=== PATIENT | male | born 1940 | race Two or more races ===

== ENCOUNTER 2016-06-11 21:06 | Inpatient (IN) | payer MEDICARE, MEDICAID ==
[~2016-06-11] VITALS: Ht 165.1 cm; Wt 74.4 kg
[2016-06-11 23:15] VITALS: BP 150/72
[2016-06-12] MEDS ORDERED: CATAPRES-TTS 11 EACH TDERMAL (01:08)
[2016-06-12] MEDS ORDERED: ATENOLOL50 MG ORAL (01:08)
[2016-06-12] MEDS ORDERED: COZAAR100 MG ORAL (01:08)
[2016-06-12] MEDS ORDERED: VITAMIN D250000 UNI1 ORAL (01:08)
[2016-06-12] MEDS ORDERED: COLCHICINE0.6 M1 PO (01:38)
[2016-06-12] MEDS ORDERED: ZOCOR40 MG ORAL (01:38)
[2016-06-12] MEDS ORDERED: PLAVIX75 MG ORAL (01:38)
[2016-06-12 04:00] VITALS: BP 111/58
[2016-06-12 04:46] LABS: EOSINOPHILS % (AUTO) 1.8 % (0.0-3.0); LYMPHOCYTES % (AUTO) 44.4 % (20.0-45.0); MEAN CORPUSCULAR HEMOGLOBIN 28.6 PG (27.0-31.0); MEAN CORPUSCULAR HGB CONC 33.4 G/DL (32.0-36.0); MEAN CORPUSCULAR VOLUME 86 FL (80-99); MEAN PLATELET VOLUME 8.2 FL (6.5-10.1); MONOCYTES % (AUTO) 7.7 % (1.0-10.0); NEUTROPHILS % (AUTO) 44.1 % (45.0-75.0); PLATELET COUNT 192 K/UL (150-450); RED BLOOD COUNT 4.82 M/UL (4.70-6.10); RED CELL DISTRIBUTION WIDTH 12.5 % (11.6-14.8)
[2016-06-12 05:12] LABS: PSA TOTAL 3.1 ng/mL (< 4.5)
[2016-06-12 05:23] LABS: ANION GAP 17 (5-15); CALCIUM 9.4 mg/dL (8.6-10.2); CARBON DIOXIDE 25 mEQ/L (20-30); CHLORIDE 96 mEQ/L (98-107); CREATININE 1.7 mg/dL (0.7-1.2); HEMOLYSIS 6; MAGNESIUM 2.3 mg/dL (1.7-2.5); PHOSPHORUS 4.7 mg/dL (2.5-4.8); POTASSIUM 4.6 mEQ/L (3.4-4.9); SODIUM 138 mEQ/L (135-145)
[2016-06-12 05:31] LABS: TROPONIN I < 0.30 ng/mL (<=0.30)
[2016-06-12 08:00] VITALS: BP 118/54
[2016-06-12] MEDS: Heparin 5000 units/ml inj SUBQ SCH ×2 (09:00→22:01)
[2016-06-12 09:37] LABS: THYROID STIMULATING HORMONE 1.25 uIU/mL (0.300-4.500)
[2016-06-12 12:00] VITALS: BP 139/76
[2016-06-12 16:00] VITALS: BP 131/59
--- NOTE | 2016-06-12 16:16 | History & Physical ---
History and Physical History & Physicial Dictated for Int Med-Dr Soliz no [id number]. HOWARD BLANTON Jun 12, 2016 16:16
[2016-06-12 18:39] LABS: TROPONIN I < 0.30 ng/mL (<=0.30)
[2016-06-12 20:00] VITALS: BP_SYST 128; BP_SYST 133; BP_DIAS 64; BP_DIAS 73
[2016-06-13] VITALS: BP 122/65
[2016-06-13 04:00] VITALS: BP 123/56
--- NOTE | 2016-06-13 05:37 | History and Physical Report ---
DATE OF ADMISSION: 06/11/2016 CHIEF COMPLAINT: The patient is a 76-year-old, male, who presents with a chief complaint of slurred speech and dizziness. HISTORY OF PRESENT ILLNESS: The patient states he started a clonidine patch on 06/06/2016. The patient states that on 06/11/2016, the patient began to experience dizziness. According to the family who is present at bedside, the patient began to have slurred speech. The patient was also confused. The patient initially presented to [facility] emergency room. An initial CAT scan revealed no acute disease. The patient was transferred to [facility] for insurance purposes. The patient presents today with a chief complaint of near syncopal episode and dysarthria. PAST MEDICAL HISTORY: Significant for, 1. Hypertension. 2. Coronary artery disease, status post myocardial infarction 15 years ago with percutaneous transluminal coronary angioplasty performed at that time. PAST SURGICAL HISTORY: Significant for percutaneous transluminal coronary angioplasty in 2002. CURRENT MEDICATIONS: 1. Clonidine patch 0.1 mg applied weekly. 2. Atenolol 50 mg one tablet p.o. twice daily. 3. Zocor 40 mg one tablet p.o. daily. 4. Plavix 75 mg one tablet p.o. daily. 5. Colchicine 0.6 mg one tab p.o. daily. 6. Vitamin D 50,000 units one p.o. every week. 7. Cozaar 100 mg one tablet p.o. daily. ALLERGIES: Penicillin. SOCIAL HISTORY: The patient is and his is at the bedside. The patient is retired. The patient denies tobacco or alcohol use. REVIEW OF SYSTEMS: Constitutional: The patient denies weight loss or weight gain. The patient denies fevers or chills. HEENT: The patient denies ear or throat pain. Cardiovascular: The patient denies palpitations or chest pain. Chest: The patient denies wheeze or shortness of breath. Abdomen: The patient denies nausea, vomiting, diarrhea, or constipation. Genitourinary: The patient denies dysuria or increased frequency of urination. Neuromuscular: The patient complains of near syncopal episode as above. The patient complains of confusion. The patient denies seizures or generalized weakness. PHYSICAL EXAMINATION: VITAL SIGNS: Temperature 97.2 degrees, respirations 18, pulse 43 to 60, blood pressure 111 to 139/54 to 76. GENERAL: The patient is well developed and well nourished male, in no apparent distress. HEENT: Eyes, pupils are equal and responsive to light and accommodation. Extraocular movements are intact. NECK: Supple without lymphadenopathy. CHEST: Lungs are clear to auscultation bilaterally without wheezes or rales. CARDIOVASCULAR: Regular rhythm and rate. S1 and S2 normal without murmurs, rubs, or gallops. ABDOMEN: Soft, nontender, and nondistended. Positive bowel sounds. No evidence of hepatosplenomegaly. Currently, no rebound or guarding noted. EXTREMITIES: Negative for clubbing, cyanosis, or edema. RECTAL/GENITAL: Refused. NEUROLOGIC: Cranial nerves II through XII are grossly intact without focal deficits. Motor strength is 5/5 bilaterally. Deep tendon reflexes are 2+ plantar. LABORATORY STUDIES: WBC 7.2, hemoglobin 13.8, hematocrit 41.2, and platelets 192,000. Sodium 138, potassium 4.6, chloride 96, CO2 17, BUN elevated at 47, creatinine 1.7, and glucose 111. A CT scan of the brain at [facility] showed no acute intracranial hemorrhage with an old lacunar infarct at the left basal ganglia. Otherwise, no acute disease. ASSESSMENT: This is a 76-year-old, male. 1. Slurred speech. 2. Confusion. 3. Near syncopal episode. 4. Bradycardia. 5. Renal failure. 6. Hypertension. 7. Coronary artery disease. 8. Hypercholesterolemia. 9. Gout. TREATMENT: 1. Slurred speech, flaccid dysarthria. An MRI of the brain is pending. An initial CT scan of the brain was within normal limits. The patient's slurred speech and dysarthria may be secondary to hypotension and bradycardia. A Cardiology consultation was obtained with Dr. Chinmay Iniguez. A Neurology consultation was obtained with Dr. Kirkpatrick. 2. Syncopal episode. 3. Slurred speech and dysarthria as above. 4. Bradycardia. A Cardiology consultation was obtained with Dr. Chinmay Iniguez. This may be secondary to metoprolol or clonidine as above. 5. Renal failure. A Nephrology consultation was obtained with Dr. Mello. This may be secondary to dehydration. 6. Hypertension. Discontinue all antihypertensive medications as above. The patient has been started on Norvasc in the meantime. 7. History of coronary artery disease. Serial troponin levels are pending. A Cardiology consultation was obtained with Dr. Noble Villa. 8. Hypercholesterolemia. Continue Zocor as above. 9. Gout. Colchicine has been suspended at this point. Jamal Encarnacion M.D. DR: AARON JOB#: [id number] CC:
[2016-06-13 07:45] LABS: BASOPHILS % (AUTO) 1.1 % (0.0-2.0); EOSINOPHILS % (AUTO) 2.6 % (0.0-3.0); LYMPHOCYTES % (AUTO) 44.4 % (20.0-45.0); MEAN CORPUSCULAR HEMOGLOBIN 28.3 PG (27.0-31.0); MEAN CORPUSCULAR HGB CONC 32.3 G/DL (32.0-36.0); MEAN CORPUSCULAR VOLUME 88 FL (80-99); MEAN PLATELET VOLUME 7.9 FL (6.5-10.1); MONOCYTES % (AUTO) 7.2 % (1.0-10.0); NEUTROPHILS % (AUTO) 44.7 % (45.0-75.0); PLATELET COUNT 175 K/UL (150-450); RED BLOOD COUNT 4.57 M/UL (4.70-6.10); RED CELL DISTRIBUTION WIDTH 12.9 % (11.6-14.8); WHITE BLOOD COUNT 5.4 K/UL (4.8-10.8)
[2016-06-13 08:01] VITALS: BP 115/50
[2016-06-13 08:12] LABS: TROPONIN I < 0.30 ng/mL (<=0.30)
[2016-06-13] MEDS: Heparin 5000 units/ml inj SUBQ SCH ×2 (08:25→21:22)
[2016-06-13 08:31] LABS: ALANINE AMINOTRANSFERASE 36 U/L (3-41); ALBUMIN/GLOBULIN RATIO 1.6 (1.0-2.7); ANION GAP 15 (5-15); ASPARTATE AMINO TRANSFERASE 29 U/L (5-40); CALCIUM 9.3 mg/dL (8.6-10.2); CARBON DIOXIDE 25 mEQ/L (20-30); CHLORIDE 103 mEQ/L (98-107); CREATININE 1.4 mg/dL (0.7-1.2); HEMOLYSIS 8; MAGNESIUM 2.3 mg/dL (1.7-2.5); PHOSPHORUS 3.8 mg/dL (2.5-4.8); POTASSIUM 4.5 mEQ/L (3.4-4.9); SODIUM 143 mEQ/L (135-145); TOTAL PROTEIN 6.6 g/dL (6.6-8.7)
[2016-06-13 11:37] VITALS: BP 168/75
--- NOTE | 2016-06-13 12:37 | Internal Med Progress Note ---
Subjective Date of Service: Jun 13, 2016 Physician Name Howard Blanton Attending Physician Michael Soliz MD Current Medications Medications (Trade) Dose Ordered Sig/Hyacinth Route PRN Reason Start Time Stop Time Status Last Admin Dose Admin Acetaminophen 650 mg 650 mg Q6H PRN ORAL Mild Pain/Temp > 100.5 06/12/16 00:30 07/12/16 00:29 Amlodipine Besylate (Norvasc) 5 mg DAILY ORAL 06/12/16 09:00 07/12/16 08:59 06/13/16 08:23 Clopidogrel Bisulfate (Plavix) 75 mg DAILY ORAL 06/12/16 09:00 07/12/16 08:59 06/13/16 08:22 Colchicine (Colchicine) 0.6 mg DAILY PRN ORAL For Pain 06/12/16 00:30 07/12/16 00:29 Dextrose (Dextrose 50%) STAT PRN IV Hypoglycemia 06/12/16 00:30 07/12/16 00:29 Heparin Sodium (Porcine) (Heparin 5000 units/ml) 5,000 units Q12HR SUBQ 06/12/16 09:00 07/12/16 08:59 06/13/16 08:25 Sodium Chloride (Sodium Chloride 1000ml bag) 1,000 ml @ 75 mls/hr [id number] IV 06/12/16 17:00 07/12/16 16:59 06/13/16 07:04 Allergies: Coded Allergies: PENICILLIN G (Verified Allergy, Mild, 02/15/11) ROS Limited/Unobtainable: No Constitutional: Reports: no symptoms HEENT: Reports: no symptoms Cardiovascular: Reports: no symptoms Respiratory: Reports: no symptoms Gastrointestinal/Abdominal: Reports: no symptoms Genitourinary: Reports: no symptoms Neurologic/Psychiatric: Reports: no symptoms Subjective 76 YO M admitted with slurred speech. Cover for Int Nolan-Dr Soliz. Await MRI brain and carotid duplex doppler. Bradycardia Objective Last Vital Signs Date Time Temp Pulse Resp B/P Pulse Ox O2 Delivery O2 Flow Rate FiO2 06/13/16 11:37 97.1 62 20 168/75 100 Room Air General Appearance: WD/WN, no apparent distress EENT: PERRL/EOMI, normal ENT inspection, other - slurred speech Neck: non-tender, normal alignment, supple, normal inspection Cardiovascular: normal peripheral pulses, normal rate, regular rhythm, no gallop/murmur, no JVD Respiratory/Chest: chest wall non-tender, lungs clear, normal breath sounds, no respiratory distress, no accessory muscle use Abdomen: normal bowel sounds, non tender, soft, no organomegaly, no mass Extremities: normal range of motion Neurologic: no motor/sensory deficits, other - slurrred speech Skin: normal pigmentation, warm/dry Laboratory Tests Test 06/12/16 17:30 06/13/16 06:10 Troponin I < 0.30 ng/mL (<=0.30) < 0.30 ng/mL (<=0.30) White Blood Count 5.4 K/UL (4.8-10.8) Red Blood Count 4.57 M/UL (4.70-6.10) L Hemoglobin 12.9 G/DL (14.2-18.0) L Hematocrit 40.0 % (42.0-52.0) L Mean Corpuscular Volume 88 FL (80-99) Mean Corpuscular Hemoglobin 28.3 PG (27.0-31.0) Mean Corpuscular Hemoglobin Concent 32.3 G/DL (32.0-36.0) Red Cell Distribution Width 12.9 % (11.6-14.8) Platelet Count 175 K/UL (150-450) Mean Platelet Volume 7.9 FL (6.5-10.1) Neutrophils (%) (Auto) 44.7 % (45.0-75.0) L Lymphocytes (%) (Auto) 44.4 % (20.0-45.0) Monocytes (%) (Auto) 7.2 % (1.0-10.0) Eosinophils (%) (Auto) 2.6 % (0.0-3.0) Basophils (%) (Auto) 1.1 % (0.0-2.0) Sodium Level 143 mEQ/L (135-145) Potassium Level 4.5 mEQ/L (3.4-4.9) Chloride Level 103 mEQ/L (98-107) Carbon Dioxide Level 25 mEQ/L (20-30) Anion Gap 15 (5-15) Blood Urea Nitrogen 34 mg/dL (7-23) H Creatinine 1.4 mg/dL (0.7-1.2) H Estimat Glomerular Filtration Rate mL/min (>60) Glucose Level 97 mg/dL (74-106) Calcium Level 9.3 mg/dL (8.6-10.2) Phosphorus Level 3.8 mg/dL (2.5-4.8) Magnesium Level 2.3 mg/dL (1.7-2.5) Total Bilirubin 0.5 mg/dL (0.0-1.2) Aspartate Amino Transf (AST/SGOT) 29 U/L (5-40) Alanine Aminotransferase (ALT/SGPT) 36 U/L (3-41) Alkaline Phosphatase 65 U/L (40-129) Total Protein 6.6 g/dL (6.6-8.7) Albumin 4.1 g/dL (3.5-5.2) Globulin 2.5 g/dL Albumin/Globulin Ratio 1.6 (1.0-2.7) Intake and Output 06/12/16 06/13/16 19:00 07:00 Intake Total 150 ml 825 ml Output Total 450 ml 350 ml Balance -300 ml 475 ml IV Total 150 ml 825 ml Output Urine Total 450 ml 350 ml Assessment/Plan Problem List: (1) Coronary artery disease Assessment & Plan: Await cardiology consult. Troponin neg (2) Hypercholesteremia (3) Gout (4) Confusion (5) Bradycardia Assessment & Plan: Await cardiology consult. (6) Renal failure (7) Syncope (8) HTN (hypertension) Assessment & Plan: Cont norvasc. (9) Dysarthria Assessment & Plan: ? CVA? Await neuro consult. Await MRI brain and carotid duplex Status: not improved HOWARD BLANTON Jun 13, 2016 12:36
--- NOTE | 2016-06-13 14:43 | Consultation ---
History of Present Illness General Date patient seen: Jun 13, 2016 Chief Complaint: ALOC Referring physician: Dr. Encarnacion Reason for Consultation: Inpatient managemtn Present Illness HPI 76 year old male with hx of DM, HTN, CVA 15 years ago, whose bp meds were changed by primary physician. He was sitting at the dinner table when he was noticed to have slow and slurred speech. He thought that his bp was too low, but there is no documentation of low bp. The paramedics sheet are not available. Pt had an EKG in [place] which showed bifascicular block. After initial symptomatic treatment, he was transferred to [facility] telemetry for further evaluation. Currently he is asymptomatic. Allergies: Coded Allergies: PENICILLIN G (Verified Allergy, Mild, 02/15/11) Medication History Scheduled Clopidogrel Bisulfate* (Plavix*), 75 MG ORAL DAILY, (Reported) Simvastatin (Zocor), 40 MG ORAL BEDTIME, (Reported) Miscellaneous Medications Colchicine (Colchicine), 0.6 MG PO, (Reported) Discontinued Medications Atenolol* (Tenormin*), 50 MG ORAL BID, (Reported) Discontinued Reason: MD discontinued med Wqdlzhioc-Uzj-3* (Gfajlkty-Fva-9*), 1 PATCH TDERMAL ONCE A WEEK, (Reported) Discontinued Reason: MD discontinued med Ergocalciferol (Vitamin D2)* (Vitamin D*), 50,000 UNIT ORAL ONCE A WEEK, ( Reported) Discontinued Reason: MD discontinued med Losartan Potassium (Cozaar), 100 MG ORAL DAILY, (Reported) Discontinued Reason: MD discontinued med Patient History Healthcare decision maker N Resuscitation status Full Code Advanced Directive on File No Past Medical/Surgical History Past Medical/Surgical History: (1) Diabetes mellitus (2) HTN (hypertension) (3) Gout Review of Systems Constitutional: Reports: no symptoms All Other Systems: negative except mentioned in HPI Physical Exam General Appearance: WD/WN Lines, tubes and drains: peripheral, central line HEENT: normocephalic, atraumatic Neck: non-tender, normal alignment Respiratory/Chest: chest wall non-tender, lungs clear Cardiovascular/Chest: normal peripheral pulses, normal rate Abdomen: normal bowel sounds Genitourinary/Rectal: normal genital exam Extremities: normal range of motion Neurologic: brand marketing manager II-XII grossly normal Last 24 Hour Vital Signs Date Time Temp Pulse Resp B/P Pulse Ox O2 Delivery O2 Flow Rate FiO2 06/13/16 11:37 97.1 62 20 168/75 100 Room Air 06/13/16 08:23 47 115/50 06/13/16 08:01 97.0 47 20 115/50 100 Room Air 06/13/16 08:00 51 06/13/16 04:00 97.7 51 20 123/56 95 Room Air 06/13/16 04:00 45 06/13/16 00:00 97.5 48 20 122/65 96 Room Air 06/13/16 00:00 49 06/12/16 20:00 97.7 51 20 133/64 95 06/12/16 20:00 49 06/12/16 16:00 51 06/12/16 16:00 97.7 50 20 131/59 96 Intake and Output 06/12/16 06/13/16 19:00 07:00 Intake Total 150 ml 825 ml Output Total 450 ml 350 ml Balance -300 ml 475 ml IV Total 150 ml 825 ml Output Urine Total 450 ml 350 ml Laboratory Tests Test 06/12/16 17:30 06/13/16 06:10 Troponin I < 0.30 ng/mL (<=0.30) < 0.30 ng/mL (<=0.30) White Blood Count 5.4 K/UL (4.8-10.8) Red Blood Count 4.57 M/UL (4.70-6.10) L Hemoglobin 12.9 G/DL (14.2-18.0) L Hematocrit 40.0 % (42.0-52.0) L Mean Corpuscular Volume 88 FL (80-99) Mean Corpuscular Hemoglobin 28.3 PG (27.0-31.0) Mean Corpuscular Hemoglobin Concent 32.3 G/DL (32.0-36.0) Red Cell Distribution Width 12.9 % (11.6-14.8) Platelet Count 175 K/UL (150-450) Mean Platelet Volume 7.9 FL (6.5-10.1) Neutrophils (%) (Auto) 44.7 % (45.0-75.0) L Lymphocytes (%) (Auto) 44.4 % (20.0-45.0) Monocytes (%) (Auto) 7.2 % (1.0-10.0) Eosinophils (%) (Auto) 2.6 % (0.0-3.0) Basophils (%) (Auto) 1.1 % (0.0-2.0) Sodium Level 143 mEQ/L (135-145) Potassium Level 4.5 mEQ/L (3.4-4.9) Chloride Level 103 mEQ/L (98-107) Carbon Dioxide Level 25 mEQ/L (20-30) Anion Gap 15 (5-15) Blood Urea Nitrogen 34 mg/dL (7-23) H Creatinine 1.4 mg/dL (0.7-1.2) H Estimat Glomerular Filtration Rate mL/min (>60) Glucose Level 97 mg/dL (74-106) Calcium Level 9.3 mg/dL (8.6-10.2) Phosphorus Level 3.8 mg/dL (2.5-4.8) Magnesium Level 2.3 mg/dL (1.7-2.5) Total Bilirubin 0.5 mg/dL (0.0-1.2) Aspartate Amino Transf (AST/SGOT) 29 U/L (5-40) Alanine Aminotransferase (ALT/SGPT) 36 U/L (3-41) Alkaline Phosphatase 65 U/L (40-129) Total Protein 6.6 g/dL (6.6-8.7) Albumin 4.1 g/dL (3.5-5.2) Globulin 2.5 g/dL Albumin/Globulin Ratio 1.6 (1.0-2.7) Height (Feet): 5 Height (Inches): 5.00 Weight (Pounds): 164 Medications Current Medications Medications (Trade) Dose Ordered Sig/Hyacinth Route PRN Reason Start Time Stop Time Status Last Admin Dose Admin Acetaminophen 650 mg 650 mg Q6H PRN ORAL Mild Pain/Temp > 100.5 06/12/16 00:30 07/12/16 00:29 Amlodipine Besylate (Norvasc) 5 mg DAILY ORAL 06/12/16 09:00 07/12/16 08:59 06/13/16 08:23 Clopidogrel Bisulfate (Plavix) 75 mg DAILY ORAL 06/12/16 09:00 07/12/16 08:59 06/13/16 08:22 Colchicine (Colchicine) 0.6 mg DAILY PRN ORAL For Pain 06/12/16 00:30 07/12/16 00:29 Dextrose (Dextrose 50%) STAT PRN IV Hypoglycemia 06/12/16 00:30 07/12/16 00:29 Heparin Sodium (Porcine) (Heparin 5000 units/ml) 5,000 units Q12HR SUBQ 06/12/16 09:00 07/12/16 08:59 06/13/16 08:25 Sodium Chloride (Sodium Chloride 1000ml bag) 1,000 ml @ 75 mls/hr [id number] IV 06/12/16 17:00 07/12/16 16:59 06/13/16 07:04 Assessment/Plan Problem List: (1) Syncope ICD Codes: R55 - Syncope and collapse SNOMED: 849684278 (2) Acute encephalopathy ICD Codes: G93.40 - Encephalopathy, unspecified SNOMED: 4967339 (3) HTN (hypertension) ICD Codes: I10 - Essential (primary) hypertension SNOMED: 22418802 Qualifiers: Qualified Codes: I10 - Essential (primary) hypertension (4) Renal failure ICD Codes: N19 - Unspecified kidney failure SNOMED: 44153504 (5) Confusion ICD Codes: R41.0 - Disorientation, unspecified SNOMED: 027539454 (6) Gout ICD Codes: M10.9 - Gout, unspecified SNOMED: 78320357 Qualifiers: (7) Diabetes mellitus ICD Codes: E11.9 - Type 2 diabetes mellitus without complications SNOMED: 77889195 Qualifiers: Assessment/Plan get Echo results EF 55% MRI neuro evaluaiton get baseline cxr Cardio evaluation RUTH ANDRADE Jun 13, 2016 14:43
--- NOTE | 2016-06-13 15:08 | Diagnostic Imaging Report ---
Indication: Altered mental status Technique: The head was imaged in a 1.5 Charlene magnet. Sequences obtained include sagittal and axial T1 FLAIR, axial T2 fast spin echo with fat saturation, axial T2 FLAIR, diffusion and ADC map. Gadolinium-enhanced axial and coronal T1 FLAIR obtained also. Comparison: None Findings: There is mild prominence of the sulci, ventricles, and basal cisterns consistent with atrophy. Mild, nonspecific T2 hyperintensity noted within white matter. This may be due to chronic small vessel disease. No abnormal enhancement is identified. Cystic foci demonstrated in the left caudate and coronal radiata bilaterally. There is no restricted diffusion. Funk-white differentiation is normal. There is no mass effect, midline shift, edema, or hemorrhage. There are no abnormal extra-axial or intra-axial fluid collections. The corpus callosum and sella are unremarkable. The brainstem and cerebellum are unremarkable. Bone marrow signal within the visualized osseous structures appears age appropriate and unremarkable otherwise. Impression: No acute intracranial findings. Old lacunar infarcts in the left caudate and bilateral coronal radiata. Age-related findings including atrophy and evidence of chronic small vessel disease involving white matter tracts.
--- NOTE | 2016-06-13 15:14 | Consultation ---
Consult Note Consult Note asked to evaluate for renal failure- 76 year old male with hx of DM, HTN, CVA 15 years ago, whose bp meds were changed by primary physician. He was sitting at the dinner table when he was noticed to have slow and slurred speech. He thought that his bp was too low, but there is no documentation of low bp. The paramedics sheet are not available. Pt had an EKG in [place] which showed bifascicular block. After initial symptomatic treatment, he was transferred to [facility] telemetry for further evaluation. Currently he is asymptomatic. Allergies: Coded Allergies: PENICILLIN G (Verified Allergy, Mild, 02/15/11) Patient interviewed, examined- Data reviewed . Assessment/Plan status: Renal failure, mainly pre-renal / dehydration, likely underlying CKD Presented with Cr 1.7 , now down to 1.4 no UA available yet Others: (1) h/o Coronary artery disease (2) Hypercholesteremia (3) Gout (4) Encephalopathy on ER arrival, h/o CVA ( MRI: Old lacunar infarcts in the left caudate and bilateral coronal radiata.) (5) Bradycardia, likely due to medication, rule out sick sinus (6) Syncope, likely due to (5) (7) HTN (hypertension), by history (8) Dysarthria, resolved Plan: Hydralazine for better BP control- slow Hydrate- Urine analysis and studies- continue per consultants VENESSA MORALES Jun 13, 2016 15:14
[2016-06-13] MEDS ORDERED: HydrALAZINE 25mg tab ORAL PRN (15:30)
--- NOTE | 2016-06-13 15:31 | Diagnostic Imaging Report ---
Indication: Dyspnea Comparison: None A single view chest radiograph was obtained. Findings: No definite infiltrate or pulmonary vascular congestion identified. The heart is normal. The aorta is mildly enlarged and calcified consistent with atherosclerotic vascular disease. The bones are osteopenic. Impression: No acute disease
[2016-06-13] MEDS ORDERED: HydrALAZINE 10mg Tab ORAL SCH (15:45)
[2016-06-13 16:00] VITALS: BP 192/73
[2016-06-13 16:27] LABS: APPEARANCE,URINE CLEAR; KETONES,URINE NEGATIVE (NEGATIVE); LEUKOCYTE ESTERASE ,URINE NEGATIVE (NEGATIVE); NITRITE,URINE NEGATIVE (NEGATIVE); PH,URINE 6 (4.5-8.0); PROTEIN,URINE 2+ (NEGATIVE); UROBILINOGEN,URINE NORMAL MG/DL (0.0-1.0)
[2016-06-13 16:37] LABS: BACTERIA,URINE FEW /HPF; RBC,URINE 0-2 /HPF (0 - 0); WBC,URINE 0-2 /HPF (0 - 0)
--- NOTE | 2016-06-13 16:47 | Neurology Progress Note ---
Interim History Interim History ROS Limited/Unobtainable: No Objective Physical Exam Last Vital Signs Date Time Temp Pulse Resp B/P Pulse Ox O2 Delivery O2 Flow Rate FiO2 06/13/16 16:08 192/93 06/13/16 16:00 97.9 69 20 99 Room Air Laboratory Tests Test 06/12/16 17:30 06/13/16 06:10 06/13/16 15:45 Troponin I < 0.30 ng/mL (<=0.30) < 0.30 ng/mL (<=0.30) White Blood Count 5.4 K/UL (4.8-10.8) Red Blood Count 4.57 M/UL (4.70-6.10) L Hemoglobin 12.9 G/DL (14.2-18.0) L Hematocrit 40.0 % (42.0-52.0) L Mean Corpuscular Volume 88 FL (80-99) Mean Corpuscular Hemoglobin 28.3 PG (27.0-31.0) Mean Corpuscular Hemoglobin Concent 32.3 G/DL (32.0-36.0) Red Cell Distribution Width 12.9 % (11.6-14.8) Platelet Count 175 K/UL (150-450) Mean Platelet Volume 7.9 FL (6.5-10.1) Neutrophils (%) (Auto) 44.7 % (45.0-75.0) L Lymphocytes (%) (Auto) 44.4 % (20.0-45.0) Monocytes (%) (Auto) 7.2 % (1.0-10.0) Eosinophils (%) (Auto) 2.6 % (0.0-3.0) Basophils (%) (Auto) 1.1 % (0.0-2.0) Sodium Level 143 mEQ/L (135-145) Potassium Level 4.5 mEQ/L (3.4-4.9) Chloride Level 103 mEQ/L (98-107) Carbon Dioxide Level 25 mEQ/L (20-30) Anion Gap 15 (5-15) Blood Urea Nitrogen 34 mg/dL (7-23) H Creatinine 1.4 mg/dL (0.7-1.2) H Estimat Glomerular Filtration Rate mL/min (>60) Glucose Level 97 mg/dL (74-106) Calcium Level 9.3 mg/dL (8.6-10.2) Phosphorus Level 3.8 mg/dL (2.5-4.8) Magnesium Level 2.3 mg/dL (1.7-2.5) Total Bilirubin 0.5 mg/dL (0.0-1.2) Aspartate Amino Transf (AST/SGOT) 29 U/L (5-40) Alanine Aminotransferase (ALT/SGPT) 36 U/L (3-41) Alkaline Phosphatase 65 U/L (40-129) Total Protein 6.6 g/dL (6.6-8.7) Albumin 4.1 g/dL (3.5-5.2) Globulin 2.5 g/dL Albumin/Globulin Ratio 1.6 (1.0-2.7) Urine Color Pale yellow Urine Appearance Clear Urine pH 6 (4.5-8.0) Urine Specific Lyndon 1.010 (1.005-1.035) Urine Protein 2+ (NEGATIVE) H Urine Glucose (UA) Negative (NEGATIVE) Urine Ketones Negative (NEGATIVE) Urine Occult Blood Negative (NEGATIVE) Urine Nitrite Negative (NEGATIVE) Urine Bilirubin Negative (NEGATIVE) Urine Urobilinogen Normal MG/DL (0.0-1.0) Urine Leukocyte Esterase Negative (NEGATIVE) Urine RBC 0-2 /HPF (0 - 0) H Urine WBC 0-2 /HPF (0 - 0) Urine Squamous Epithelial Cells None /LPF (NONE/OCC) Urine Bacteria Few /HPF (NONE) Impression/Recommendations Status: not improved Recommendations #[id number] JOSEPH PRIETO Jun 13, 2016 16:47
--- NOTE | 2016-06-13 17:33 | Cardiac Electrophysiology PN ---
Subjective Subjective [id number]. Presyncope with brday HR 40s and Bifascicular block. CT and MRI brain both negative. Accelerated HTN 190s Objective Last 24 Hour Vital Signs Date Time Temp Pulse Resp B/P Pulse Ox O2 Delivery O2 Flow Rate FiO2 06/13/16 16:08 192/93 06/13/16 16:00 97.9 69 20 192/73 99 Room Air 06/13/16 11:37 97.1 62 20 168/75 100 Room Air 06/13/16 08:23 47 115/50 06/13/16 08:01 97.0 47 20 115/50 100 Room Air 06/13/16 08:00 51 06/13/16 04:00 97.7 51 20 123/56 95 Room Air 06/13/16 04:00 45 06/13/16 00:00 97.5 48 20 122/65 96 Room Air 06/13/16 00:00 49 06/12/16 20:00 97.7 51 20 133/64 95 06/12/16 20:00 49 Intake and Output 06/12/16 06/13/16 19:00 07:00 Intake Total 150 ml 825 ml Output Total 450 ml 350 ml Balance -300 ml 475 ml IV Total 150 ml 825 ml Output Urine Total 450 ml 350 ml Laboratory Tests Test 06/13/16 06:10 06/13/16 15:45 White Blood Count 5.4 K/UL (4.8-10.8) Red Blood Count 4.57 M/UL (4.70-6.10) L Hemoglobin 12.9 G/DL (14.2-18.0) L Hematocrit 40.0 % (42.0-52.0) L Mean Corpuscular Volume 88 FL (80-99) Mean Corpuscular Hemoglobin 28.3 PG (27.0-31.0) Mean Corpuscular Hemoglobin Concent 32.3 G/DL (32.0-36.0) Red Cell Distribution Width 12.9 % (11.6-14.8) Platelet Count 175 K/UL (150-450) Mean Platelet Volume 7.9 FL (6.5-10.1) Neutrophils (%) (Auto) 44.7 % (45.0-75.0) L Lymphocytes (%) (Auto) 44.4 % (20.0-45.0) Monocytes (%) (Auto) 7.2 % (1.0-10.0) Eosinophils (%) (Auto) 2.6 % (0.0-3.0) Basophils (%) (Auto) 1.1 % (0.0-2.0) Sodium Level 143 mEQ/L (135-145) Potassium Level 4.5 mEQ/L (3.4-4.9) Chloride Level 103 mEQ/L (98-107) Carbon Dioxide Level 25 mEQ/L (20-30) Anion Gap 15 (5-15) Blood Urea Nitrogen 34 mg/dL (7-23) H Creatinine 1.4 mg/dL (0.7-1.2) H Estimat Glomerular Filtration Rate mL/min (>60) Glucose Level 97 mg/dL (74-106) Calcium Level 9.3 mg/dL (8.6-10.2) Phosphorus Level 3.8 mg/dL (2.5-4.8) Magnesium Level 2.3 mg/dL (1.7-2.5) Total Bilirubin 0.5 mg/dL (0.0-1.2) Aspartate Amino Transf (AST/SGOT) 29 U/L (5-40) Alanine Aminotransferase (ALT/SGPT) 36 U/L (3-41) Alkaline Phosphatase 65 U/L (40-129) Troponin I < 0.30 ng/mL (<=0.30) Total Protein 6.6 g/dL (6.6-8.7) Albumin 4.1 g/dL (3.5-5.2) Globulin 2.5 g/dL Albumin/Globulin Ratio 1.6 (1.0-2.7) Urine Color Pale yellow Urine Appearance Clear Urine pH 6 (4.5-8.0) Urine Specific [place] 1.010 (1.005-1.035) Urine Protein 2+ (NEGATIVE) H Urine Glucose (UA) Negative (NEGATIVE) Urine Ketones Negative (NEGATIVE) Urine Occult Blood Negative (NEGATIVE) Urine Nitrite Negative (NEGATIVE) Urine Bilirubin Negative (NEGATIVE) Urine Urobilinogen Normal MG/DL (0.0-1.0) Urine Leukocyte Esterase Negative (NEGATIVE) Urine RBC 0-2 /HPF (0 - 0) H Urine WBC 0-2 /HPF (0 - 0) Urine Squamous Epithelial Cells None /LPF (NONE/OCC) Urine Bacteria Few /HPF (NONE) PARK JUAREZ Jun 13, 2016 17:33
[2016-06-13] MEDS ORDERED: HydrALAZINE 50mg tab ORAL SCH (18:00)
[2016-06-13] MEDS: Enalaprilat 2.5mg/2ml Inj IV SCH (18:07)
[2016-06-13] MEDS: HydrALAZINE 50mg tab ORAL SCH ×2 (18:07→21:21)
--- NOTE | 2016-06-13 18:32 | Cardiology Report ---
APPROVED REPORT EXAM: Two-dimensional and M-mode echocardiogram with Doppler and color Doppler. INDICATION Bradycardia M-Mode DIMENSIONS IVSd1.0 (0.7-1.1cm)Left Atrium (MM)4.6 (1.6-4.0cm) LVDd5.1 (3.5-5.6cm)Aortic Root3.2 (2.0-3.7cm) PWd1.1 (0.7-1.1cm)Aortic Cusp Exc.1.8 (1.5-2.0cm) LVDs4.0 (2.5-4.0cm) PWs1.5 cm Normal left ventricular chamber size, systolic function and wall motion. Left ventricular ejection fraction estimated to be 60-65%. No evidence of ventricular hypertrophy. Anterior Echo-free space, may be due to pericardial fat or effusion. No evidence of pericardial effusion. Right atrium is at upper normal limit. Mild left atrial enlargement. Right ventricular chamber size is within normal limits. Mild focal aortic valve sclerosis with adequate cusp excursion. Mildly thickened mitral valve leaflets with normal excursion. Mild mitral annulus and aortic root calcification. Pulmonic valve not well visualized. Normal tricuspid valve structure. IVC dilated at 1.7cm with physiologic collapse. A color flow and spectral Doppler study was performed and revealed: Mild aortic regurgitation. Trace mitral regurgitation. Mitral diastolic velocities suggest reduced left ventricular relaxation (Grade I). Trace tricuspid regurgitation. Tricuspid systolic velocities suggests peak right ventricular systolic pressure of 18 mmHg. Trace pulmonic regurgitation present.
[2016-06-13 20:00] VITALS: BP 116/61
--- NOTE | 2016-06-13 23:17 | Consultation ---
DATE OF CONSULTATION: 06/13/2016 NEUROLOGICAL CONSULTATION CONSULTING PHYSICIAN: Lew Kirkpatrick M.D. REQUESTING PHYSICIAN: Michael Soliz M.D. HISTORY OF PRESENT ILLNESS: This is a 76-year-old gentleman, seen in neurological consultation to evaluate the recurrent changes in mental status. According to the patient, but also from medical records, it is known that, on 06/11/2016, while in presence of the family he started to develop a slurred speech, become confused, had generalized weakness, feeling "very tired," he was eased up by the family to the ground. Apparently, he was described as being pale and was at least unresponsive for about a minute. There was some difficulty in expressing himself. Paramedics were called to the scene. He remember seeing them and he was taken to the emergency room at [facility]. The patient, who had a clonidine patch placed few days ago, this was taken out in the emergency department. On arrival, there was a bradycardia with heart rate of 48. EKG with bifascicular block. Chest x-ray, normal. CAT scan of the brain, old lacunar basal ganglia, stroke. No evidence of acute abnormalities. No midline shift. Heart rate remained bradycardic in 50s and 40 and remained afebrile. He is described as being "awake and oriented." The patient was then brought to this hospital for further assessment and treatment. His admission laboratory studies included normal CBC, chemistry panel with anion gap of 17, BUN of 47, and creatinine 1.7. Normal TSH and lipid panel. His chest x-ray repeated, no acute disease noted. Following admission, the patient was stabilized, but yesterday he had episodes of confusion and disorientation. Stroke was suspected and MRI of the brain with and without contrast was obtained, which revealed no evidence of acute intracranial abnormality, left old lacunar infarct, and left carotid and bilateral marquez radiata noted. Age-related findings including atrophy and chronic small vessel disease involving white matter tracts were described. PAST MEDICAL HISTORY: The patient has a history of hypertension, coronary artery disease, history of previous MS, stenting in 2002, and hyperlipidemia. MEDICATIONS: The patient's treatment prior to admission included Cozaar, Plavix, Zocor, atenolol, clonidine patch, colchicine, and vitamin D supplements. ALLERGIES: Penicillin. SOCIAL HISTORY: The patient is . He has adult children. There is no alcohol and no drug abuse. Nonsmoker. REVIEW OF SYMPTOMS: Denies headache or dizziness. Currently, he has no chest pain and no palpitations. No respiratory difficulties. No abdominal pain or discomfort. No urine or bowel incontinence. Unaware of having previous strokes, TIA, or seizures. PHYSICAL EXAMINATION: GENERAL: A well-developed, well-nourished, pleasant man, not in acute distress. VITAL SIGNS: Blood pressure 133/80 and respirations 14. HEENT: Head normocephalic. No evidence of injuries. Eyes, ears, and throat are clear. NECK: Supple. No meningeal signs. MUSCULOSKELETAL: Unremarkable. There is no deformities. Peripheral pulses 1+ symmetric. MENTAL STATUS: Alert and oriented x3. His speech is fluent. Language intact. There is no aphasia or apraxia. He is somewhat forgetful on recent events. CRANIAL NERVE II: Pupils both responding to light and accommodation. Extraocular movement intact. No nystagmus. CRANIAL NERVE V: Normal corneal responses. CRANIAL NERVE VII: No facial asymmetry. CRANIAL NERVE VIII: Grossly normal hearing. CRANIAL NERVES IX THROUGH XII: Tongue is in midline. Symmetric palate elevation. MOTOR EXAMINATION: Normal muscle tone. Lifting arms and legs against the gravity. Deep reflexes 1+ and symmetric with downgoing toes on both sides. SENSORY EXAM: Normal to pinprick and light touch. Gait not tested, but reported able to ambulate without assistance. IMPRESSION: 1. This is a 76-year-old man, who presented with recurrent transient confusion and presyncope episodes, rule out a bloody arrhythmia, rule out orthostatic hypotension. No evidence of stroke or transient ischemic attack noted. 2. 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 3. Hypertension. 4. Chronic renal insufficiency. 5. Coronary artery disease. 6. Hyperlipidemia. RECOMMENDATION: 1. Check orthostatic blood pressure. 2. Continue with cardiac monitoring to address the issue of bradycardias as per Cardiology. 3. Maintain p.o. hydration. Continue with aspirin and Zocor. 4. Review carotid duplex study. I discussed the patient's status with Dr. Encarnacion. Thank you for allowing me to see this interesting patient in neurological consultation. Lew Kirkpatrick M.D. DR: GAURAV JOB#: [id number] CC:
[2016-06-14 00:21] VITALS: BP 132/71
--- NOTE | 2016-06-14 00:27 | Consultation ---
DATE OF CONSULTATION: CARDIOLOGY CONSULTATION REFERRING PHYSICIAN: Michael Soliz M.D. REASON FOR CONSULTATION: Bradycardia, bifascicular block, and syncope. HISTORY OF PRESENT ILLNESS: The patient is a very pleasant 76-year-old gentleman who initially presented to [facility] on 06/11/2016 with dizziness and some slurring of speech. Initial CT scan showed no active disease and the patient was transferred to [facility] for further evaluation and management. On telemetry, the patient was having episodes of bradycardia with heart rate dropping to 40s and underlying bifascicular block. The patient has history of prior myocardial infarction 15 years ago with angioplasty at that time. At the time of my evaluation, the patient denies any chest pain, palpitations, or shortness of breath. REVIEW OF SYSTEM: Review of Systems was thoroughly performed and was negative other than what was mentioned in the history of present illness. PAST MEDICAL HISTORY: Hypertension, angioplasty for myocardial function 15 years ago. FAMILY HISTORY: Noncontributory. MEDICATIONS: Clonidine, atenolol, Zocor, Plavix, colchicine, Cozaar. ALLERGIES: Penicillin. SOCIAL HISTORY: He is , lives with his . Does not smoke or drink alcohol. PHYSICAL EXAMINATION: VITAL SIGNS: Blood pressure is 192/93, pulse 69 dropped to 40, respiratory rate 18, afebrile. HEENT: No JVD or carotid bruits. LUNGS: Clear. CARDIOVASCULAR: Shows regular S1 and S2 with no gallop or murmur. ABDOMEN: Soft. EXTREMITIES: No pitting edema. LABORATORY AND DIAGNOSTIC DATA: MRI of the brain showed no acute intracranial findings. EKG shows sinus rhythm with rate of 49 with right bundle-branch block, left posterior fascicular block. His echocardiogram showed ejection fraction of 60% to 65% with left ventricular hypertrophy. ASSESSMENT AND PLAN: 1. Dizziness and bradycardia. He is off of clonidine as well as beta-franck. I will increase his hydralazine to 100 mg three times a day as this episode may be secondary to also accelerated hypertension. We will increase Norvasc to 5 mg b.i.d., . 2. History of coronary artery disease add Lipitor to his medical regimen and keep him off beta-franck. 3. Episode of confusion and near syncope, Neurology evaluation including MRI evaluation and CT were all negative. Further evaluation by Dr. Kirkpatrick. The patient remains persistently bradycardic despite being off of some sort of . The patient would need a permanent pacemaker implantation . 4. Gout. Add colchicine. Thank very much, Dr. Soliz, and Dr. Encarnacion for allowing me to participate in the care of this patient. Please do not hesitate to contact me for any questions regarding my evaluation. Chinmay Iniguez M.D. DR: Clifford JOB#: [id number] CC:
[2016-06-14] MEDS: Enalaprilat 2.5mg/2ml Inj IV SCH ×3 (01:11→12:00)
[2016-06-14 04:10] VITALS: BP 103/62
[2016-06-14] MEDS: HydrALAZINE 50mg tab ORAL SCH ×3 (06:42→21:43)
[2016-06-14 07:46] VITALS: BP 96/50
[2016-06-14] MEDS: Heparin 5000 units/ml inj SUBQ SCH ×2 (08:15→21:44)
[2016-06-14 08:26] LABS: MEAN CORPUSCULAR HEMOGLOBIN 28.7 PG (27.0-31.0); MEAN CORPUSCULAR HGB CONC 32.6 G/DL (32.0-36.0); MEAN CORPUSCULAR VOLUME 88 FL (80-99); MEAN PLATELET VOLUME 8.4 FL (6.5-10.1); PLATELET COUNT 190 K/UL (150-450); RED BLOOD COUNT 4.59 M/UL (4.70-6.10); RED CELL DISTRIBUTION WIDTH 12.9 % (11.6-14.8); WHITE BLOOD COUNT 6.9 K/UL (4.8-10.8)
[2016-06-14 08:39] LABS: ALANINE AMINOTRANSFERASE 32 U/L (3-41); ALBUMIN/GLOBULIN RATIO 1.5 (1.0-2.7); ANION GAP 15 (5-15); ASPARTATE AMINO TRANSFERASE 22 U/L (5-40); CALCIUM 9.3 mg/dL (8.6-10.2); CARBON DIOXIDE 25 mEQ/L (20-30); CHLORIDE 105 mEQ/L (98-107); CHOLESTEROL 151 mg/dL (< 200); CHOLESTEROL/HDL RATIO 4.1 (3.3-4.4); CREATININE 1.3 mg/dL (0.7-1.2); CRP QUANT < 0.3 mg/dL (< 0.5); HEMOLYSIS 6; LDL CHOLESTEROL (CALC.) 74 mg/dL (60-99); MAGNESIUM 2.1 mg/dL (1.7-2.5); PHOSPHORUS 3.3 mg/dL (2.5-4.8); POTASSIUM 4.1 mEQ/L (3.4-4.9); SODIUM 145 mEQ/L (135-145); TOTAL PROTEIN 6.7 g/dL (6.6-8.7); URIC ACID 9.5 mg/dL (3.0-7.5)
[2016-06-14 08:47] LABS: TROPONIN I < 0.30 ng/mL (<=0.30)
[2016-06-14 09:30] LABS: BAND NEUTROPHILS % (MANUAL) 0 % (0-8); BASOPHILS % (MANUAL) 0 % (0-2); EOSINOPHILS % (MANUAL) 0 % (0-3); LYMPHOCYTES % (MANUAL) 46 % (20-45); NEUTROPHILS % (MANUAL) 47 % (45-75); PLATELET ESTIMATE ADEQUATE; PLATELET MORPHOLOGY NORMAL; TOTAL CELLS COUNTED 100
[2016-06-14 11:21] VITALS: BP 105/48
--- NOTE | 2016-06-14 11:31 | Diagnostic Imaging Report ---
Indication: Acute renal failure and hypertension Technique: Grayscale and duplex images of the kidneys, retroperitoneum, and bladder were obtained. Comparison:None Findings: Right kidney measures 11 cm in length. Left kidney measures 11.7 cm in length. Both kidneys demonstrate normal echogenicity. No hydronephrosis. There are bilateral renal cysts of varying sizes. The prostate is enlarged, prostate volume measuring 62 mL. One or more small cysts are seen within the prostate. Normal inferior vena cava. Bladder is normal. Impression: Negative for hydronephrosis Bilateral renal cysts Enlarged prostate containing one or more small cysts.
--- NOTE | 2016-06-14 14:59 | Cardiac Electrophysiology PN ---
Assessment/Plan Assessment/Plan 1. Dizziness and bradycardia. Keep off of clonidine and beta-franck. 2. Accelerated HTN. On hydralazine 100 mg three times a day and Norvasc to 5 mg b.i.d. and prn iv Vasotec 3. History of coronary artery disease . Aspirin and Lipitor 4. Episode of confusion and near syncope, MRI and CT brain were all negative. Further evaluation by Dr. Kirkpatrick. 5. Gout. Add colchicine. Subjective Subjective Feeling better. No chest pain or SOB. Echo EF 65%. Objective Last 24 Hour Vital Signs Date Time Temp Pulse Resp B/P Pulse Ox O2 Delivery O2 Flow Rate FiO2 06/14/16 13:51 105/48 06/14/16 12:00 105/48 06/14/16 11:21 96.2 82 20 105/48 98 Room Air 06/14/16 08:11 80 96/50 06/14/16 08:00 84 06/14/16 07:46 97.0 80 20 96/50 95 Room Air 06/14/16 06:42 103/71 06/14/16 06:00 103/71 06/14/16 04:10 98.2 77 20 103/62 95 Room Air 06/14/16 04:00 58 06/14/16 01:11 132/71 06/14/16 00:21 97.3 68 21 132/71 98 Room Air 06/14/16 00:00 64 06/13/16 21:21 116/61 06/13/16 20:00 60 06/13/16 20:00 98.1 73 18 116/61 96 Room Air 06/13/16 18:07 161/83 06/13/16 18:07 161/83 06/13/16 18:06 80 161/83 06/13/16 16:08 192/93 06/13/16 16:00 97.9 69 20 192/73 99 Room Air 06/13/16 16:00 80 Intake and Output 06/13/16 06/14/16 19:00 07:00 Intake Total 520 ml 990 ml Output Total 1400 ml 900 ml Balance -880 ml 90 ml Intake Oral 520 ml 240 ml IV Total 750 ml Output Urine Total 1400 ml 900 ml # Voids 3 Laboratory Tests Test 06/13/16 15:45 06/14/16 07:25 Urine Color Pale yellow Urine Appearance Clear Urine pH 6 (4.5-8.0) Urine Specific Reed[place] 1.010 (1.005-1.035) Urine Protein 2+ (NEGATIVE) H Urine Glucose (UA) Negative (NEGATIVE) Urine Ketones Negative (NEGATIVE) Urine Occult Blood Negative (NEGATIVE) Urine Nitrite Negative (NEGATIVE) Urine Bilirubin Negative (NEGATIVE) Urine Urobilinogen Normal MG/DL (0.0-1.0) Urine Leukocyte Esterase Negative (NEGATIVE) Urine RBC 0-2 /HPF (0 - 0) H Urine WBC 0-2 /HPF (0 - 0) Urine Squamous Epithelial Cells None /LPF (NONE/OCC) Urine Bacteria Few /HPF (NONE) White Blood Count 6.9 K/UL (4.8-10.8) Red Blood Count 4.59 M/UL (4.70-6.10) L Hemoglobin 13.2 G/DL (14.2-18.0) L Hematocrit 40.4 % (42.0-52.0) L Mean Corpuscular Volume 88 FL (80-99) Mean Corpuscular Hemoglobin 28.7 PG (27.0-31.0) Mean Corpuscular Hemoglobin Concent 32.6 G/DL (32.0-36.0) Red Cell Distribution Width 12.9 % (11.6-14.8) Platelet Count 190 K/UL (150-450) Mean Platelet Volume 8.4 FL (6.5-10.1) Neutrophils (%) (Auto) % (45.0-75.0) Lymphocytes (%) (Auto) % (20.0-45.0) Monocytes (%) (Auto) % (1.0-10.0) Eosinophils (%) (Auto) % (0.0-3.0) Basophils (%) (Auto) % (0.0-2.0) Differential Total Cells Counted 100 Neutrophils % (Manual) 47 % (45-75) Lymphocytes % (Manual) 46 % (20-45) H Monocytes % (Manual) 7 % (1-10) Eosinophils % (Manual) 0 % (0-3) Basophils % (Manual) 0 % (0-2) Band Neutrophils 0 % (0-8) Platelet Estimate Adequate Platelet Morphology Normal Red Blood Cell Morphology Normal Sodium Level 145 mEQ/L (135-145) Potassium Level 4.1 mEQ/L (3.4-4.9) Chloride Level 105 mEQ/L (98-107) Carbon Dioxide Level 25 mEQ/L (20-30) Anion Gap 15 (5-15) Blood Urea Nitrogen 24 mg/dL (7-23) H Creatinine 1.3 mg/dL (0.7-1.2) H Estimat Glomerular Filtration Rate mL/min (>60) Glucose Level 104 mg/dL (74-106) Uric Acid 9.5 mg/dL (3.0-7.5) H Calcium Level 9.3 mg/dL (8.6-10.2) Phosphorus Level 3.3 mg/dL (2.5-4.8) Magnesium Level 2.1 mg/dL (1.7-2.5) Total Bilirubin 0.5 mg/dL (0.0-1.2) Gamma Glutamyl Transpeptidase 18 U/L (8-61) Aspartate Amino Transf (AST/SGOT) 22 U/L (5-40) Alanine Aminotransferase (ALT/SGPT) 32 U/L (3-41) Alkaline Phosphatase 65 U/L (40-129) Total Creatine Kinase 83 U/L (38-174) Troponin I < 0.30 ng/mL (<=0.30) C-Reactive Protein, Quantitative < 0.3 mg/dL (< 0.5) Pro-B-Type Natriuretic Peptide 1116 pg/mL (0-125) H Total Protein 6.7 g/dL (6.6-8.7) Albumin 4.1 g/dL (3.5-5.2) Globulin 2.6 g/dL Albumin/Globulin Ratio 1.5 (1.0-2.7) Triglycerides Level 199 mg/dL (< 150) H Cholesterol Level 151 mg/dL (< 200) LDL Cholesterol 74 mg/dL (60-99) HDL Cholesterol 37 mg/dL (> 60) Cholesterol/HDL Ratio 4.1 (3.3-4.4) Microbiology Date/Time Source Procedure Growth Status 06/12/16 01:30 Nasal Nares MRSA Culture - Final NO METHICILLIN RESISTANT STAPH AUREUS... Complete 06/12/16 01:31 Rectum VRE Culture - Final NO VANCOMYCIN RESISTANT ENTEROCOCCUS ... Complete Objective HEENT: No JVD or carotid bruits. LUNGS: Clear. CARDIOVASCULAR: Regular S1 and S2 with no gallop or murmur. ABDOMEN: Soft. EXTREMITIES: No pitting edema. PARK JUAREZ Jun 14, 2016 14:59
[2016-06-14] MEDS ORDERED: Enalaprilat 2.5mg/2ml Inj IV PRN (15:00)
[2016-06-14 16:00] VITALS: BP 116/57
--- NOTE | 2016-06-14 17:05 | Pulmonology Progress Note ---
Assessment/Plan Problems: (1) Syncope (2) Acute encephalopathy (3) HTN (hypertension) (4) Renal failure (5) Confusion (6) Gout (7) Diabetes mellitus Assessment/Plan changing bp meds by Cardio noted pts pt remains borderline low, I suggest to cut down on bp meds continue telemetry all meds and labs reviewed d/w Dr paz Subjective ROS Limited/Unobtainable: No - no Interval Events: no new complains Allergies: Coded Allergies: PENICILLIN G (Verified Allergy, Mild, 02/15/11) All Systems: reviewed and negative except above Objective Last 24 Hour Vital Signs Date Time Temp Pulse Resp B/P Pulse Ox O2 Delivery O2 Flow Rate FiO2 06/14/16 16:00 96.6 87 20 116/57 98 Room Air 06/14/16 13:51 105/48 06/14/16 12:00 105/48 06/14/16 11:21 96.2 82 20 105/48 98 Room Air 06/14/16 08:11 80 96/50 06/14/16 08:00 84 06/14/16 07:46 97.0 80 20 96/50 95 Room Air 06/14/16 06:42 103/71 06/14/16 06:00 103/71 06/14/16 04:10 98.2 77 20 103/62 95 Room Air 06/14/16 04:00 58 06/14/16 01:11 132/71 06/14/16 00:21 97.3 68 21 132/71 98 Room Air 06/14/16 00:00 64 06/13/16 21:21 116/61 06/13/16 20:00 60 06/13/16 20:00 98.1 73 18 116/61 96 Room Air 06/13/16 18:07 161/83 06/13/16 18:07 161/83 06/13/16 18:06 80 161/83 Intake and Output 06/13/16 06/14/16 19:00 07:00 Intake Total 520 ml 990 ml Output Total 1400 ml 900 ml Balance -880 ml 90 ml Intake Oral 520 ml 240 ml IV Total 750 ml Output Urine Total 1400 ml 900 ml # Voids 3 General Appearance: WD/WN HEENT: normocephalic Respiratory/Chest: chest wall non-tender, lungs clear Cardiovascular: normal peripheral pulses, normal rate Abdomen: normal bowel sounds, no organomegaly Genitourinary: normal external genitalia Extremities: no cyanosis Skin: no rash 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 Complete 06/12/16 01:31 Rectum VRE Culture - Final NO VANCOMYCIN RESISTANT ENTEROCOCCUS ... Complete Laboratory Tests 06/14/16 07:25: White Blood Count 6.9, Red Blood Count 4.59L, Hemoglobin 13.2L, Hematocrit 40.4L , Mean Corpuscular Volume 88, Mean Corpuscular Hemoglobin 28.7, Mean Corpuscular Hemoglobin Concent 32.6, Red Cell Distribution Width 12.9, Platelet Count 190, Mean Platelet Volume 8.4, Neutrophils (%) (Auto) , Lymphocytes (%) ( Auto) , Monocytes (%) (Auto) , Eosinophils (%) (Auto) , Basophils (%) (Auto) , Differential Total Cells Counted 100, Neutrophils % (Manual) 47, Lymphocytes % ( Manual) 46H, Monocytes % (Manual) 7, Eosinophils % (Manual) 0, Basophils % ( Manual) 0, Band Neutrophils 0, Platelet Estimate Adequate, Platelet Morphology Normal, Red Blood Cell Morphology Normal, Sodium Level 145, Potassium Level 4.1 , Chloride Level 105, Carbon Dioxide Level 25, Anion Gap 15, Blood Urea Nitrogen 24H, Creatinine 1.3H, Estimat Glomerular Filtration Rate , Glucose Level 104, Uric Acid 9.5H, Calcium Level 9.3, Phosphorus Level 3.3, Magnesium Level 2.1, Total Bilirubin 0.5, Gamma Glutamyl Transpeptidase 18, Aspartate Amino Transf (AST/SGOT) 22, Alanine Aminotransferase (ALT/SGPT) 32, Alkaline Phosphatase 65, Total Creatine Kinase 83, Troponin I < 0.30, C-Reactive Protein , Quantitative < 0.3, Pro-B-Type Natriuretic Peptide 1116H, Total Protein 6.7, Albumin 4.1, Globulin 2.6, Albumin/Globulin Ratio 1.5, Triglycerides Level 199H , Cholesterol Level 151, LDL Cholesterol 74, HDL Cholesterol 37, Cholesterol/ HDL Ratio 4.1 Current Medications Medications (Trade) Dose Ordered Sig/Hyacinth Route PRN Reason Start Time Stop Time Status Last Admin Dose Admin Acetaminophen 650 mg 650 mg Q6H PRN ORAL Mild Pain/Temp > 100.5 06/12/16 00:30 07/12/16 00:29 Amlodipine Besylate (Norvasc) 5 mg BID ORAL 06/13/16 18:00 07/13/16 17:59 06/13/16 18:06 Clopidogrel Bisulfate (Plavix) 75 mg DAILY ORAL 06/12/16 09:00 07/12/16 08:59 06/14/16 08:12 Colchicine (Colchicine) 0.6 mg DAILY PRN ORAL For Pain 06/12/16 00:30 07/12/16 00:29 Dextrose (Dextrose 50%) STAT PRN IV Hypoglycemia 06/12/16 00:30 07/12/16 00:29 Enalaprilat (Vasotec) 2.5 mg Q3H PRN IV SBP>170, GIVE OVER 5 MIN 06/14/16 15:00 07/14/16 14:59 Heparin Sodium (Porcine) (Heparin 5000 units/ml) 5,000 units Q12HR SUBQ 06/12/16 09:00 07/12/16 08:59 06/14/16 08:15 Hydralazine HCl (Apresoline) 25 mg Q6H PRN ORAL SBP > 165 06/13/16 15:30 07/13/16 15:29 Hydralazine HCl (Apresoline) 100 mg Q8HR ORAL 06/13/16 18:00 07/13/16 17:59 06/14/16 13:51 Sodium Chloride (Sodium Chloride 1000ml bag) 1,000 ml @ 75 mls/hr [id number] IV 06/12/16 17:00 07/12/16 16:59 06/14/16 08:15 RUTH ANDRADE Jun 14, 2016 17:05
--- NOTE | 2016-06-14 17:33 | Internal Med Progress Note ---
Subjective Date of Service: Jun 14, 2016 Physician Name Howard Blanton Attending Physician Michael Soliz MD Current Medications Medications (Trade) Dose Ordered Sig/Hyacinth Route PRN Reason Start Time Stop Time Status Last Admin Dose Admin Acetaminophen 650 mg 650 mg Q6H PRN ORAL Mild Pain/Temp > 100.5 06/12/16 00:30 07/12/16 00:29 Amlodipine Besylate (Norvasc) 5 mg BID ORAL 06/13/16 18:00 07/13/16 17:59 06/13/16 18:06 Clopidogrel Bisulfate (Plavix) 75 mg DAILY ORAL 06/12/16 09:00 07/12/16 08:59 06/14/16 08:12 Colchicine (Colchicine) 0.6 mg DAILY PRN ORAL For Pain 06/12/16 00:30 07/12/16 00:29 Dextrose (Dextrose 50%) STAT PRN IV Hypoglycemia 06/12/16 00:30 07/12/16 00:29 Enalaprilat (Vasotec) 2.5 mg Q3H PRN IV SBP>170, GIVE OVER 5 MIN 06/14/16 15:00 07/14/16 14:59 Heparin Sodium (Porcine) (Heparin 5000 units/ml) 5,000 units Q12HR SUBQ 06/12/16 09:00 07/12/16 08:59 06/14/16 08:15 Hydralazine HCl (Apresoline) 25 mg Q6H PRN ORAL SBP > 165 06/13/16 15:30 07/13/16 15:29 Hydralazine HCl (Apresoline) 100 mg Q8HR ORAL 06/13/16 18:00 07/13/16 17:59 06/14/16 13:51 Sodium Chloride (Sodium Chloride 1000ml bag) 1,000 ml @ 75 mls/hr [id number] IV 06/12/16 17:00 07/12/16 16:59 06/14/16 08:15 Allergies: Coded Allergies: PENICILLIN G (Verified Allergy, Mild, 02/15/11) ROS Limited/Unobtainable: No Constitutional: Reports: no symptoms HEENT: Reports: no symptoms Cardiovascular: Reports: no symptoms Respiratory: Reports: no symptoms Gastrointestinal/Abdominal: Reports: no symptoms Genitourinary: Reports: no symptoms Neurologic/Psychiatric: Reports: no symptoms Subjective 76 YO M admitted with slurred speech. Cover for Int Nolan-Dr Soliz. Await carotid duplex Doppler. Bradycardia resolving Objective Last Vital Signs Date Time Temp Pulse Resp B/P Pulse Ox O2 Delivery O2 Flow Rate FiO2 06/14/16 16:00 96.6 87 20 116/57 98 Room Air Laboratory Tests Test 06/14/16 07:25 White Blood Count 6.9 K/UL (4.8-10.8) Red Blood Count 4.59 M/UL (4.70-6.10) L Hemoglobin 13.2 G/DL (14.2-18.0) L Hematocrit 40.4 % (42.0-52.0) L Mean Corpuscular Volume 88 FL (80-99) Mean Corpuscular Hemoglobin 28.7 PG (27.0-31.0) Mean Corpuscular Hemoglobin Concent 32.6 G/DL (32.0-36.0) Red Cell Distribution Width 12.9 % (11.6-14.8) Platelet Count 190 K/UL (150-450) Mean Platelet Volume 8.4 FL (6.5-10.1) Neutrophils (%) (Auto) % (45.0-75.0) Lymphocytes (%) (Auto) % (20.0-45.0) Monocytes (%) (Auto) % (1.0-10.0) Eosinophils (%) (Auto) % (0.0-3.0) Basophils (%) (Auto) % (0.0-2.0) Differential Total Cells Counted 100 Neutrophils % (Manual) 47 % (45-75) Lymphocytes % (Manual) 46 % (20-45) H Monocytes % (Manual) 7 % (1-10) Eosinophils % (Manual) 0 % (0-3) Basophils % (Manual) 0 % (0-2) Band Neutrophils 0 % (0-8) Platelet Estimate Adequate Platelet Morphology Normal Red Blood Cell Morphology Normal Sodium Level 145 mEQ/L (135-145) Potassium Level 4.1 mEQ/L (3.4-4.9) Chloride Level 105 mEQ/L (98-107) Carbon Dioxide Level 25 mEQ/L (20-30) Anion Gap 15 (5-15) Blood Urea Nitrogen 24 mg/dL (7-23) H Creatinine 1.3 mg/dL (0.7-1.2) H Estimat Glomerular Filtration Rate mL/min (>60) Glucose Level 104 mg/dL (74-106) Uric Acid 9.5 mg/dL (3.0-7.5) H Calcium Level 9.3 mg/dL (8.6-10.2) Phosphorus Level 3.3 mg/dL (2.5-4.8) Magnesium Level 2.1 mg/dL (1.7-2.5) Total Bilirubin 0.5 mg/dL (0.0-1.2) Gamma Glutamyl Transpeptidase 18 U/L (8-61) Aspartate Amino Transf (AST/SGOT) 22 U/L (5-40) Alanine Aminotransferase (ALT/SGPT) 32 U/L (3-41) Alkaline Phosphatase 65 U/L (40-129) Total Creatine Kinase 83 U/L (38-174) Troponin I < 0.30 ng/mL (<=0.30) C-Reactive Protein, Quantitative < 0.3 mg/dL (< 0.5) Pro-B-Type Natriuretic Peptide 1116 pg/mL (0-125) H Total Protein 6.7 g/dL (6.6-8.7) Albumin 4.1 g/dL (3.5-5.2) Globulin 2.6 g/dL Albumin/Globulin Ratio 1.5 (1.0-2.7) Triglycerides Level 199 mg/dL (< 150) H Cholesterol Level 151 mg/dL (< 200) LDL Cholesterol 74 mg/dL (60-99) HDL Cholesterol 37 mg/dL (> 60) Cholesterol/HDL Ratio 4.1 (3.3-4.4) Microbiology Date/Time Source Procedure Growth Status 06/12/16 01:30 Nasal Nares MRSA Culture - Final NO METHICILLIN RESISTANT STAPH AUREUS... Complete 06/12/16 01:31 Rectum VRE Culture - Final NO VANCOMYCIN RESISTANT ENTEROCOCCUS ... Complete Intake and Output 06/13/16 06/14/16 19:00 07:00 Intake Total 520 ml 990 ml Output Total 1400 ml 900 ml Balance -880 ml 90 ml Intake Oral 520 ml 240 ml IV Total 750 ml Output Urine Total 1400 ml 900 ml # Voids 3 Objective General Appearance: WD/WN, no apparent distress EENT: PERRL/EOMI, normal ENT inspection, other - slurred speech Neck: non-tender, normal alignment, supple, normal inspection Cardiovascular: normal peripheral pulses, normal rate, regular rhythm, no gallop/murmur, no JVD Respiratory/Chest: chest wall non-tender, lungs clear, normal breath sounds, no respiratory distress, no accessory muscle use Abdomen: normal bowel sounds, non tender, soft, no organomegaly, no mass Extremities: normal range of motion Neurologic: no motor/sensory deficits, other - slurrred speech Skin: normal pigmentation, warm/dry Assessment/Plan Problem List: (1) Coronary artery disease Assessment & Plan: Await cardiology consult. Troponin neg (2) Hypercholesteremia (3) Gout (4) Confusion (5) Bradycardia Assessment & Plan: Await cardiology consult. (6) Renal failure (7) Syncope (8) HTN (hypertension) Assessment & Plan: Cont norvasc. (9) Dysarthria Assessment & Plan: MRI brain=no acute CVA. Appreciate neuro consult. Await carotid duplex Status: progressing HOWARD BLANTON Jun 14, 2016 17:33
--- NOTE | 2016-06-14 17:42 | General Progress Note ---
Assessment/Plan Status: unchanged Status Narrative BP very low Assessment/Plan status: Renal failure, mainly pre-renal / dehydration, likely underlying CKD Presented with Cr 1.7 , now down to 1.4 no UA available yet Others: (1) h/o Coronary artery disease (2) Hypercholesteremia (3) Gout (4) Encephalopathy on ER arrival, h/o CVA ( MRI: Old lacunar infarcts in the left caudate and bilateral coronal radiata.) (5) Bradycardia, likely due to medication, rule out sick sinus (6) Syncope, likely due to (5) (7) HTN (hypertension), by history (8) Dysarthria, resolved Plan: Hydralazine for better BP control- adjust the dose and parameters- slow Hydrate- Urine analysis and studies- continue per consultants Subjective ROS Limited/Unobtainable: No Constitutional: Reports: malaise, weakness Allergies: Coded Allergies: PENICILLIN G (Verified Allergy, Mild, 02/15/11) Objective Last 24 Hour Vital Signs Date Time Temp Pulse Resp B/P Pulse Ox O2 Delivery O2 Flow Rate FiO2 06/14/16 16:00 96.6 87 20 116/57 98 Room Air 06/14/16 13:51 105/48 06/14/16 12:00 105/48 06/14/16 11:21 96.2 82 20 105/48 98 Room Air 06/14/16 08:11 80 96/50 06/14/16 08:00 84 06/14/16 07:46 97.0 80 20 96/50 95 Room Air 06/14/16 06:42 103/71 06/14/16 06:00 103/71 06/14/16 04:10 98.2 77 20 103/62 95 Room Air 06/14/16 04:00 58 06/14/16 01:11 132/71 06/14/16 00:21 97.3 68 21 132/71 98 Room Air 06/14/16 00:00 64 06/13/16 21:21 116/61 06/13/16 20:00 60 06/13/16 20:00 98.1 73 18 116/61 96 Room Air 06/13/16 18:07 161/83 06/13/16 18:07 161/83 06/13/16 18:06 80 161/83 Intake and Output 06/13/16 06/14/16 19:00 07:00 Intake Total 520 ml 990 ml Output Total 1400 ml 900 ml Balance -880 ml 90 ml Intake Oral 520 ml 240 ml IV Total 750 ml Output Urine Total 1400 ml 900 ml # Voids 3 Laboratory Tests 06/14/16 07:25: White Blood Count 6.9, Red Blood Count 4.59L, Hemoglobin 13.2L, Hematocrit 40.4L , Mean Corpuscular Volume 88, Mean Corpuscular Hemoglobin 28.7, Mean Corpuscular Hemoglobin Concent 32.6, Red Cell Distribution Width 12.9, Platelet Count 190, Mean Platelet Volume 8.4, Neutrophils (%) (Auto) , Lymphocytes (%) ( Auto) , Monocytes (%) (Auto) , Eosinophils (%) (Auto) , Basophils (%) (Auto) , Differential Total Cells Counted 100, Neutrophils % (Manual) 47, Lymphocytes % ( Manual) 46H, Monocytes % (Manual) 7, Eosinophils % (Manual) 0, Basophils % ( Manual) 0, Band Neutrophils 0, Platelet Estimate Adequate, Platelet Morphology Normal, Red Blood Cell Morphology Normal, Sodium Level 145, Potassium Level 4.1 , Chloride Level 105, Carbon Dioxide Level 25, Anion Gap 15, Blood Urea Nitrogen 24H, Creatinine 1.3H, Estimat Glomerular Filtration Rate , Glucose Level 104, Uric Acid 9.5H, Calcium Level 9.3, Phosphorus Level 3.3, Magnesium Level 2.1, Total Bilirubin 0.5, Gamma Glutamyl Transpeptidase 18, Aspartate Amino Transf (AST/SGOT) 22, Alanine Aminotransferase (ALT/SGPT) 32, Alkaline Phosphatase 65, Total Creatine Kinase 83, Troponin I < 0.30, C-Reactive Protein , Quantitative < 0.3, Pro-B-Type Natriuretic Peptide 1116H, Total Protein 6.7, Albumin 4.1, Globulin 2.6, Albumin/Globulin Ratio 1.5, Triglycerides Level 199H , Cholesterol Level 151, LDL Cholesterol 74, HDL Cholesterol 37, Cholesterol/ HDL Ratio 4.1 Height (Feet): 5 Height (Inches): 5.00 Weight (Pounds): 164 General Appearance: no apparent distress Objective other PE not changed VENESSA MORALES Jun 14, 2016 17:42
[2016-06-14 20:00] VITALS: BP 145/80
[2016-06-15 00:14] VITALS: BP 148/71
[2016-06-15 04:12] VITALS: BP 127/60
[2016-06-15] MEDS: HydrALAZINE 50mg tab ORAL SCH ×2 (05:15→14:45)
[2016-06-15 07:36] LABS: BASOPHILS % (AUTO) 1.3 % (0.0-2.0); EOSINOPHILS % (AUTO) 1.9 % (0.0-3.0); LYMPHOCYTES % (AUTO) 38.5 % (20.0-45.0); MEAN CORPUSCULAR HEMOGLOBIN 28.1 PG (27.0-31.0); MEAN CORPUSCULAR HGB CONC 32.4 G/DL (32.0-36.0); MEAN CORPUSCULAR VOLUME 87 FL (80-99); MEAN PLATELET VOLUME 8.2 FL (6.5-10.1); MONOCYTES % (AUTO) 6.9 % (1.0-10.0); NEUTROPHILS % (AUTO) 51.5 % (45.0-75.0); PLATELET COUNT 174 K/UL (150-450); RED BLOOD COUNT 4.51 M/UL (4.70-6.10); RED CELL DISTRIBUTION WIDTH 13.4 % (11.6-14.8); WHITE BLOOD COUNT 8.2 K/UL (4.8-10.8)
[2016-06-15 07:59] LABS: ANION GAP 13 (5-15); CALCIUM 9.3 mg/dL (8.6-10.2); CARBON DIOXIDE 23 mEQ/L (20-30); CHLORIDE 106 mEQ/L (98-107); CREATININE 1.2 mg/dL (0.7-1.2); HEMOLYSIS 7; POTASSIUM 4.6 mEQ/L (3.4-4.9); SODIUM 142 mEQ/L (135-145)
[2016-06-15 08:00] VITALS: BP 136/77
[2016-06-15] MEDS: Heparin 5000 units/ml inj SUBQ SCH (09:45)
--- NOTE | 2016-06-15 11:18 | Discharge Summary ---
Discharge Summary Hospital Course Date of Admission Jun 11, 2016 at 22:50 Date of Discharge Admitting Diagnosis HPI Jem Lehman is a 76 year old male who was admitted on Jun 11, 2016 at 22:50 for Syncope Hospital Course Dictated for [place] - Dr Soliz no. [id number]. Discharge Discharge Disposition Patient was discharged to Discharge Diagnoses: HOWARD BLANTON Jun 15, 2016 11:18
[2016-06-15] MEDS ORDERED: NORVASC5 MG ORAL (11:23)
[2016-06-15] MEDS ORDERED: APRESOLINE50 MG ORAL (11:23)
[2016-06-15 12:00] VITALS: BP 134/56
--- NOTE | 2016-06-15 12:40 | General Progress Note ---
Assessment/Plan Status: stable Assessment/Plan status: Renal failure, mainly pre-renal / dehydration, likely underlying CKD Presented with Cr 1.7 , now down to 1.2 UA 2+ protein Others: (1) h/o Coronary artery disease (2) Hypercholesteremia (3) Gout (4) Encephalopathy on ER arrival, h/o CVA ( MRI: Old lacunar infarcts in the left caudate and bilateral coronal radiata.) (5) Bradycardia, likely due to medication, rule out sick sinus (6) Syncope, likely due to (5) (7) HTN (hypertension), by history (8) Dysarthria, resolved Plan: Hydralazine for better BP control- adjust the dose and parameters- DC IV fluid- Urine analysis and studies- continue per consultants Subjective ROS Limited/Unobtainable: No Constitutional: Reports: malaise Allergies: Coded Allergies: PENICILLIN G (Verified Allergy, Mild, 02/15/11) Objective Last 24 Hour Vital Signs Date Time Temp Pulse Resp B/P Pulse Ox O2 Delivery O2 Flow Rate FiO2 06/15/16 09:43 86 136/77 06/15/16 08:57 131 06/15/16 08:00 97.7 86 17 136/77 97 Room Air 06/15/16 08:00 86 06/15/16 05:15 156/73 06/15/16 04:12 98.3 93 21 127/60 95 Room Air 06/15/16 03:59 80 06/15/16 00:14 98.2 94 20 148/71 93 Room Air 06/14/16 21:43 145/80 06/14/16 20:00 73 06/14/16 20:00 98.1 99 20 145/80 96 Room Air 06/14/16 17:59 87 116/57 06/14/16 16:00 85 06/14/16 16:00 96.6 87 20 116/57 98 Room Air 06/14/16 13:51 105/48 Intake and Output 06/14/16 06/15/16 19:00 07:00 Intake Total 1390 ml 825 ml Output Total 200 ml 900 ml Balance 1190 ml -75 ml Intake Oral 490 ml IV Total 900 ml 825 ml Output Urine Total 200 ml 900 ml # Voids 3 Laboratory Tests 06/15/16 06:10: White Blood Count 8.2, Red Blood Count 4.51L, Hemoglobin 12.7L, Hematocrit 39.1L , Mean Corpuscular Volume 87, Mean Corpuscular Hemoglobin 28.1, Mean Corpuscular Hemoglobin Concent 32.4, Red Cell Distribution Width 13.4, Platelet Count 174, Mean Platelet Volume 8.2, Neutrophils (%) (Auto) 51.5, Lymphocytes (% ) (Auto) 38.5, Monocytes (%) (Auto) 6.9, Eosinophils (%) (Auto) 1.9, Basophils ( %) (Auto) 1.3, Sodium Level 142, Potassium Level 4.6, Chloride Level 106, Carbon Dioxide Level 23, Anion Gap 13, Blood Urea Nitrogen 14, Creatinine 1.2, Estimat Glomerular Filtration Rate , Glucose Level 110H, Calcium Level 9.3 Height (Feet): 5 Height (Inches): 5.00 Weight (Pounds): 164 General Appearance: no apparent distress Respiratory/Chest: lungs clear Abdomen: soft Objective other PE not changed VENESSA MORALES Jun 15, 2016 12:40
--- NOTE | 2016-06-15 13:47 | Cardiology Report ---
APPROVED REPORT EKG Measurement Heart [id number] Sinus bradycardia Right bundle branch block Left posterior fascicular block Bifascicular block Inferior infarct, age undetermined Abnormal ECG
--- NOTE | 2016-06-15 14:36 | Pulmonology Progress Note ---
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 supervisor canning continue telemetry all meds and labs reviewed Subjective ROS Limited/Unobtainable: No Interval Events: bp better, Allergies: Coded Allergies: PENICILLIN G (Verified Allergy, Mild, 02/15/11) Objective Last 24 Hour Vital Signs Date Time Temp Pulse Resp B/P Pulse Ox O2 Delivery O2 Flow Rate FiO2 06/15/16 12:00 97.5 84 18 134/56 95 Room Air 06/15/16 12:00 91 06/15/16 09:43 86 136/77 06/15/16 08:57 131 06/15/16 08:00 97.7 86 17 136/77 97 Room Air 06/15/16 08:00 86 06/15/16 05:15 156/73 06/15/16 04:12 98.3 93 21 127/60 95 Room Air 06/15/16 03:59 80 06/15/16 00:14 98.2 94 20 148/71 93 Room Air 06/14/16 21:43 145/80 06/14/16 20:00 73 06/14/16 20:00 98.1 99 20 145/80 96 Room Air 06/14/16 17:59 87 116/57 06/14/16 16:00 85 06/14/16 16:00 96.6 87 20 116/57 98 Room Air Intake and Output 06/14/16 06/15/16 19:00 07:00 Intake Total 1390 ml 825 ml Output Total 200 ml 900 ml Balance 1190 ml -75 ml Intake Oral 490 ml IV Total 900 ml 825 ml Output Urine Total 200 ml 900 ml # Voids 3 General Appearance: WD/WN HEENT: normocephalic Respiratory/Chest: chest wall non-tender, lungs clear Cardiovascular: normal peripheral pulses, normal rate Abdomen: normal bowel sounds, soft, non tender Genitourinary: normal external genitalia Extremities: no cyanosis Skin: no lesions 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, no motor/sensory deficits Laboratory Tests 06/15/16 06:10: White Blood Count 8.2, Red Blood Count 4.51L, Hemoglobin 12.7L, Hematocrit 39.1L , Mean Corpuscular Volume 87, Mean Corpuscular Hemoglobin 28.1, Mean Corpuscular Hemoglobin Concent 32.4, Red Cell Distribution Width 13.4, Platelet Count 174, Mean Platelet Volume 8.2, Neutrophils (%) (Auto) 51.5, Lymphocytes (% ) (Auto) 38.5, Monocytes (%) (Auto) 6.9, Eosinophils (%) (Auto) 1.9, Basophils ( %) (Auto) 1.3, Sodium Level 142, Potassium Level 4.6, Chloride Level 106, Carbon Dioxide Level 23, Anion Gap 13, Blood Urea Nitrogen 14, Creatinine 1.2, Estimat Glomerular Filtration Rate , Glucose Level 110H, Calcium Level 9.3 Current Medications Medications (Trade) Dose Ordered Sig/Hyacinth Route PRN Reason Start Time Stop Time Status Last Admin Dose Admin Acetaminophen (Tylenol) 650 mg Q6H PRN ORAL Mild Pain/Temp > 100.5 06/12/16 00:30 07/12/16 00:29 Amlodipine Besylate (Norvasc) 5 mg BID ORAL 06/14/16 18:00 07/14/16 17:59 06/15/16 09:43 Clopidogrel Bisulfate (Plavix) 75 mg DAILY ORAL 06/12/16 09:00 07/12/16 08:59 06/15/16 09:44 Colchicine (Colchicine) 0.6 mg DAILY PRN ORAL For Pain 06/12/16 00:30 07/12/16 00:29 Dextrose (Dextrose 50%) STAT PRN IV Hypoglycemia 06/12/16 00:30 07/12/16 00:29 Enalaprilat (Vasotec) 2.5 mg Q3H PRN IV SBP>170, GIVE OVER 5 MIN 06/14/16 15:00 07/14/16 14:59 Heparin Sodium (Porcine) (Heparin 5000 units/ml) 5,000 units Q12HR SUBQ 06/12/16 09:00 07/12/16 08:59 06/15/16 09:45 Hydralazine HCl (Apresoline) 25 mg Q6H PRN ORAL SBP > 165 06/13/16 15:30 07/13/16 15:29 Hydralazine HCl (Apresoline) 50 mg Q8HR ORAL 06/14/16 22:00 07/14/16 21:59 06/15/16 05:15 RUTH ANDRADE Jun 15, 2016 14:36
[2016-06-15 16:00] VITALS: BP 159/76
[2016-06-15] MEDS ORDERED: Sterile Water Irrig 1000ml IRRIG ONE (16:29)
--- NOTE | 2016-06-15 16:48 | Cardiac Electrophysiology PN ---
Assessment/Plan Assessment/Plan 1. Dizziness and bradycardia. Keep off of clonidine and beta-franck. HR better. 2. Accelerated HTN. On hydralazine 100 mg three times a day and Norvasc to 5 mg b.i.d. 3. History of coronary artery disease . Aspirin and Lipitor 4. Episode of confusion and near syncope, MRI and CT brain were all negative. 5. Gout. Add colchicine. DW Son and RN. Ok to DC Subjective Subjective Feeling better. No chest pain or SOB. Echo EF 65%.No further bradycardia. Awaiting discharge. Son at bedside. Objective Last 24 Hour Vital Signs Date Time Temp Pulse Resp B/P Pulse Ox O2 Delivery O2 Flow Rate FiO2 06/15/16 16:00 97.7 93 18 159/76 97 Room Air 06/15/16 14:45 134/56 06/15/16 12:00 97.5 84 18 134/56 95 Room Air 06/15/16 12:00 91 06/15/16 09:43 86 136/77 06/15/16 08:57 131 06/15/16 08:00 97.7 86 17 136/77 97 Room Air 06/15/16 08:00 86 06/15/16 05:15 156/73 06/15/16 04:12 98.3 93 21 127/60 95 Room Air 06/15/16 03:59 80 06/15/16 00:14 98.2 94 20 148/71 93 Room Air 06/14/16 21:43 145/80 06/14/16 20:00 73 06/14/16 20:00 98.1 99 20 145/80 96 Room Air 06/14/16 17:59 87 116/57 Intake and Output 06/14/16 06/15/16 19:00 07:00 Intake Total 1390 ml 825 ml Output Total 200 ml 900 ml Balance 1190 ml -75 ml Intake Oral 490 ml IV Total 900 ml 825 ml Output Urine Total 200 ml 900 ml # Voids 3 Laboratory Tests Test 06/15/16 06:10 White Blood Count 8.2 K/UL (4.8-10.8) Red Blood Count 4.51 M/UL (4.70-6.10) L Hemoglobin 12.7 G/DL (14.2-18.0) L Hematocrit 39.1 % (42.0-52.0) L Mean Corpuscular Volume 87 FL (80-99) Mean Corpuscular Hemoglobin 28.1 PG (27.0-31.0) Mean Corpuscular Hemoglobin Concent 32.4 G/DL (32.0-36.0) Red Cell Distribution Width 13.4 % (11.6-14.8) Platelet Count 174 K/UL (150-450) Mean Platelet Volume 8.2 FL (6.5-10.1) Neutrophils (%) (Auto) 51.5 % (45.0-75.0) Lymphocytes (%) (Auto) 38.5 % (20.0-45.0) Monocytes (%) (Auto) 6.9 % (1.0-10.0) Eosinophils (%) (Auto) 1.9 % (0.0-3.0) Basophils (%) (Auto) 1.3 % (0.0-2.0) Sodium Level 142 mEQ/L (135-145) Potassium Level 4.6 mEQ/L (3.4-4.9) Chloride Level 106 mEQ/L (98-107) Carbon Dioxide Level 23 mEQ/L (20-30) Anion Gap 13 (5-15) Blood Urea Nitrogen 14 mg/dL (7-23) Creatinine 1.2 mg/dL (0.7-1.2) Estimat Glomerular Filtration Rate mL/min (>60) Glucose Level 110 mg/dL (74-106) H Calcium Level 9.3 mg/dL (8.6-10.2) Objective HEENT: No JVD or carotid bruits. LUNGS: Clear. CARDIOVASCULAR: Regular S1 and S2 with no gallop or murmur. ABDOMEN: Soft. EXTREMITIES: No pitting edema. PARK JUAREZ Jun 15, 2016 16:48
--- NOTE | 2016-06-16 05:37 | Discharge Summary ---
DATE OF ADMISSION: 06/11/2016 DATE OF DISCHARGE: 06/15/2016 ADMITTING DIAGNOSES: 1. Slurred speech. 2. Confusion. 3. Syncope. 4. Bradycardia. 5. Renal failure. 6. Hypertension. 7. Coronary artery disease. 8. Hypercholesterolemia. 9. Gout. DISCHARGE DIAGNOSES: 1. Syncopal episode. 2. Bradycardia. 3. Renal failure. 4. Hypertension. 5. Coronary artery disease. 6. Hypercholesterolemia. 7. Gout. HOSPITAL COURSE BY PROBLEM LIST: 1. Dysarthria/confusion/syncope. A Neurology consultation was obtained by Dr. Kirkpatrick. A Cardiology consultation was obtained with Dr. Chinmay Iniguez. The patient had an MRI of the brain, which show old lacunar infarcts in the left caudate and bilateral marquez radiata, otherwise no acute intracranial findings. Carotid duplex Dopplers failed to demonstrate significant stenosis. Slurred speech and confusion was thought to be secondary to bradycardia and syncopal episode. 2. Syncopal episode was thought to be secondary to bradycardia. As above a Neurology and Cardiology consultation were obtained with Dr. Kirkpatrick and Dr. Iniguez. The patient was found to be bradycardic. Antihypertensive medications were discontinued by Dr. Iniguez. The patient will follow up with his primary care physician week. 3. Bradycardia. This is thought to be secondary to clonidine and beta blockers. These have since been suspended. A Cardiology consultation was obtained with Dr. Noble Villa. Bradycardia is now resolved. The patient is to follow up with Dr. Iniguez as an outpatient. 4. Renal failure. A Nephrology consultation obtained with Dr. Mello. Renal failure was thought to be secondary to dehydration. The patient has received intravenous fluids during the hospitalization. BUN and creatinine are now within normal limits. 5. Hypertension. The patient was admitted on the clonidine and beta franck. These have since been discontinued. The patient is currently tolerating hydralazine for blood pressure control, Norvasc and Vasotec. All of these have controlled the patient's blood pressure. The patient is to be discharged home on Vasotec, Norvasc, and hydralazine. The patient follow up with his primary care physician in one week. 6. Coronary artery disease as above. A Cardiology consultation was obtained with Dr. Chinmay Iniguez. The patient was ruled out for acute myocardial infarction. The patient is to follow up with Dr. Iniguez as an outpatient. 7. Hypercholesterolemia. The patient remained on Lipitor during the hospitalization. The patient is to follow up with his primary care physician in one week. 8. Gout. The patient remained on colchicine 0.6 mg p.o. daily. The patient had no episodes of gout during the hospitalization. DISCHARGE MEDICATIONS: Please refer to discharge medication list. DISCHARGE INSTRUCTIONS: 1. The patient is to follow up with Dr. Chinmay Iniguez in one week. 2. The patient is to follow up with his primary care physician in one week. DISCHARGE MEDICATIONS: Please refer to discharge medication list. Jamal Encarnacion M.D. DR: Patrick JOB#: [id number] CC:
--- NOTE | 2016-06-16 12:35 | Diagnostic Imaging Report ---
APPROVED REPORT CPT Code: 66832 Vascular Symptoms Comments: Slurred speech Doppler Spectral Velocity Analysis RightLeft RIGHT SIDE: CCA/BULB - Imaging reveals irregular, minimal plaque in right carotid bulb. arteries. VERTEBRAL - The vertebral artery is patent, without evidence of stenosis or steal. LEFT SIDE: CCA - Imaging reveals no significant plaque in the common carotid artery. ICA arteries. The Doppler signal indicates the degree of stenosis is minimal (10-20%) in the internal carotid, and (10%) in the external carotid arteries. VERTEBRAL - The vertebral artery is patent, without evidence of stenosis or steal.
== END 2016-06-15 16:30 | disposition home health service (06) | DRG 308 ==
LOC: 2E 22:50
DX: R00.1 Bradycardia, unspecified (principal); G93.40 Encephalopathy, unspecified; E11.22 Type 2 diabetes mellitus with diabetic chronic kidney disease; E86.0 Dehydration; I45.2 Bifascicular block; I12.9 Hypertensive chronic kidney disease with stage 1 through stage 4 chronic kidney disease, or unspecified chronic kidney disease; N18.9 Chronic kidney disease, unspecified; I25.2 Old myocardial infarction; Z98.61 Coronary angioplasty status; Z88.0 Allergy status to penicillin; M10.9 Gout, unspecified; E78.00 Pure hypercholesterolemia, unspecified; R47.1 Dysarthria and anarthria; T46.5X5A Adverse effect of other antihypertensive drugs, initial encounter; Y92.019 Unspecified place in single-family (private) house as the place of occurrence of the external cause
CPT/HCPCS: 36415; 70553; 71010; 76775; 80048; 80053; 80061; 81001; 82465; 82550; 82977; 83036; 83735; 83880; 84100; 84153; 84443; 84484; 84550; 85007; 85025; 86140; 87081; 93005; 93306; 93880; A9585